=== PATIENT | male | born 2000 | race Caucasian/White ===

== ENCOUNTER 2025-01-06 14:46 | Emergency (ER) | payer BC, SELFPAY ==
[2025-01-06 14:58] VITALS: BP 159/74; PULSE 66; RESP 20; TEMP 37; O2SAT 98; BMI 30.1
--- NOTE | 2025-01-06 15:39 | ED.GENADULT ---
HPI - General Adult General Date Seen: 01/06/25 Chief complaint: Extremity Pain/Injury, Lower Stated complaint: sore knee-hard to walk Time Seen by Provider: 01/06/25 15:39 History of Present Illness HPI narrative: 24 yo M with a history of right knee ACL and meniscus repair, presenting to the ER today with progressively worsening right knee pain for the past couple of weeks. He says that he has had knee injuries from work and from football when he was younger. He has had 3 knee surgeries. All of his surgeries were done when he lived in [place]. He moved to [place] a couple of years ago but is not currently have any orthopedic team in [place]. He has no recent injury or fall or twisting. He has noted steadily worsening pain in his right knee for the past 2 weeks or so. Is now hurting the point where he is having trouble walking on it. It is not really swollen. It is not hot. He has not had any fever or chills. He has been taking ibuprofen sporadically, but not a lot over the past couple of days. He came to the ER today because he does not have an orthopedic doctor here in [place]. He wonders if we give him a cortisone shot in his knee. Related Data Home Medications ?Medication ?Instructions ?Recorded ?Confirmed No Known Home Medications 08/29/23 01/06/25 Allergies Allergy/AdvReac Type Severity Reaction Status Date / Time No Known Drug Allergies Allergy Verified 01/06/25 14:58 [facility] Surgical History History of arthroscopy of right knee ?Z98.890 - Other specified postprocedural states (ICD-10) Social History (Updated 02/10/24 @ 13:52 by Liz Conteh ~ [facility], [facility]) Narrative: some days vaping Smoking Status: Former smoker What tobacco products do you use: cigarettes Smoking quit date/years: <= 15 years ago Do you use any of these nicotine containing products: Vaping Products Second hand tobacco smoke exposure: No Exam Narrative: Exam Narrative: Constitutional: Appears well-developed and well-nourished. Active. Non-toxic appearing. Polite HENT: Head: Atraumatic. No signs of injury. Nose: No nasal discharge. Mouth/Throat: Mucous membranes are moist. Pharynx is normal. Tonsils symmetric. Uvula midline. Airway patent. Eyes: Conjunctivae normal and EOM are normal. Pupils are equal, round, and reactive to light. Right eye exhibits no discharge. Left eye exhibits no discharge. No icterus. Neck: Normal range of motion. Neck supple. No adenopathy. No stridor. Cardiovascular: Normal rate and regular rhythm. No murmur heard. No murmurs, rubs, or gallops. Brisk capillary refill Pulmonary/Chest: Effort normal. No stridor. No respiratory distress. . Breathing easily Musculoskeletal: Normal except for his right knee maurice of motion. Right lower extremity: Pelvis stable. Right hip nontender. Right femoral shaft, quadriceps, hamstrings nontender. Knee: Normal inspection. No redness. No swelling. He does have well-healed incisions on his anterior knee from his previous operations. No redness or warmth. No palpable effusion. Range of motion is from full extension to about 90? of flexion, limited by stiffness and pain. Intact extensor mechanism. Stress testing of the ACL, PCL, LCL is normal. Stress testing of the MCL reveals tenderness. No definite laxity but is limited by muscular guarding. No bony crepitus. Lower leg, ankle, and foot are normal. Neurological: Alert. Normal strength. No cranial nerve deficit or sensory deficit. Coordination normal. GCS eye subscore is 4. GCS verbal subscore is 5. GCS motor subscore is 6. Skin: Skin is warm. No rash noted. Const: Vital Signs, click to edit/add: Vital Signs - 24 hr 01/06/25 14:58 Temperature 98.6 F Pulse Rate [Pulse Oximeter] 66 Respiratory Rate 20 Blood Pressure [Ri ght Upper Arm] 159/74 H Pulse Oximetry 98 Oxygen Delivery Me thod Room Air Course Vital Signs Vital signs: Initial Vital Signs Temperature 98.6 F 01/06/25 14:58 Temperature Source Temporal Artery Scan 01/06/25 14:58 Pulse Rate 66 01/06/25 14:58 Respiratory Rate 20 01/06/25 14:58 Blood Pressure 159/74 H 01/06/25 14:58 Blood Pressure Mean 102 01/06/25 14:58 Pulse Oximetry 98 01/06/25 14:58 Oxygen Delivery Method Room Air 01/06/25 14:58 Vital Signs Temperature 98.6 F 01/06/25 14:58 Pulse Rate 66 01/06/25 14:58 Respiratory Rate 20 01/06/25 14:58 Blood Pressure 159/74 H 01/06/25 14:58 Pulse Oximetry 98 01/06/25 14:58 Oxygen Delivery Method Room Air 01/06/25 14:58 Temperature 98.6 F 01/06/25 14:58 Pulse Rate 66 01/06/25 14:58 Respiratory Rate 20 01/06/25 14:58 Blood Pressure 159/74 H 01/06/25 14:58 Pulse Oximetry 98 01/06/25 14:58 Oxygen Delivery Method Room Air 01/06/25 14:58 Medications Administered Medications: Discontinued Medications Generic Name Dose Route Start Last Admin Trade Name Angelito PRN Reason Stop Dose Admin Ibuprofen 600 mg 01/06/25 16:00 01/06/25 15:57 Ibuprofen 200 Mg Tablet PO 01/06/25 16:01 600 mg ONCE ONE Administration Medical Decision Making MDM Narrative Medical decision making narrative: Pleasant 24-year-old male with history of 3 previous right knee surgeries presenting to the ER with a 2 week history of progressively worsening atraumatic right knee pain. There is no swelling, effusion, redness, or warmth or fever to suggest a septic arthritis. He has no recent fall or injury. X-rays are obtained in the confirm no evidence for any occult fracture and not a lot of arthritic changes in the knee. On exam he does have significant tenderness with medial collateral stress. No definite ligamentous laxity. Patient was requesting a cortisone injection. Best to be performed in the orthopedic clinic rather than here in the ER. Will set the patient up with an orthopedic follow-up. Patient will call the orthopedic clinic on Wednesday to arrange an ER follow-up visit. For now use ibuprofen as needed for pain. Pt left prior to receiving his DC instructions. 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 Given a note for work so he can rest and keep his knee resting and elevated. Imaging Data XR right knee: Attestation: I have reviewed the pertinent imaging results. My impression: No acute fracture Radiologist's impression: IMPRESSION: 1. No acute osseous injuries or abnormalities are noted. Discharge Plan Discharge Clinical Impression: Acute pain of right knee Patient Disposition: Home, Self-Care Condition: Stable Instructions: Knee Pain (ED) Additional Instructions: As we discussed, your x-rays look good. Please call the [facility] on Wednesday to arrange an ER follow-up appointment. Call [phone]. In the meantime, rest and keep your knee elevated as possible. Use ibuprofen 600 mg up to 3 times daily as needed for pain. Use an ice pack for 20 minutes every few hours to help reduce pain and swelling. Please come back to the ER right away if you have any concerns especially worsening pain, new swelling, redness of your knee, or fever. Prescriptions: No Action No Known Home Medications Follow Up/Referrals: Provider,Not a Local [Primary Care Provider] - Stand Alone Forms: Work/School Release, [employer] Info Instructions
--- NOTE | 2025-01-06 15:52 | CRLHL7_ITS ---
For Patients: As a result of the Cures Act, medical imaging exams and procedure reports are released immediately into your electronic medical record. You may view this report before your referring provider. If you have questions, please contact your health care provider. INDICATION: Right knee pain TECHNIQUE: Knee radiograph 3 views right COMPARISON: None FINDINGS: Bone: No acute fractures or aggressive bone lesions are identified. Joint: The medial, lateral, and patellofemoral compartments are unremarkable. No significant knee effusion is seen. Soft tissue: Unremarkable. No radiopaque foreign bodies are seen. IMPRESSION: 1. No acute osseous injuries or abnormalities are noted. Dictated by: Michael Goldberg MD @ 01/06/2025 16:36:20 (Electronically Signed)
[2025-01-06] MEDS: IBUPROFEN 200 MG TABLET 600 MG PO (15:57)
--- OUTSIDE RECORDS SUMMARY | 2025-01-07 17:35 | XMS_ITS | Clinical Summary ---
Author Organization [facility] Address [address] [place] [id number] Care Team Providers Care Gas Flow Regulator Name Role Phone Michelle Sales MD Primary Care Provider [phone] Allergies No known active allergies Medications minocycline (MINOCIN) 100 mg capsuleIndications: Confluent and reticulated papillomatosis (CARP) Take 1 Capsule (100 mg) by mouth every 12 hours. 180 Capsule 3 Active Active Problems Problem Noted Date Diagnosed Date History of right knee medial mensicus repair DOS 06/02/[address] Ahuja 02/04/2023 History of right knee ACL re construction with BTB allograft, partial medial mensicectomy 25-30% by Pepe doe DOS 07/01/2016 02/04/2023 History of Right knee partia l medial meniscectomy DOS 01/08/2021 by Dejuan Munroe MD 02/04/2023 Immunizations Immunization Administration Dates Next Due MMR 01/20/2017 Tdap 01/20/2017 Tuberculin (PPD) 01/20/2017 Social History Tobacco Use Types Packs/Day Years Used Date Smoking Tobacco: Some Days Cigarettes Smokeless Tobacco: Never Tobacco Cessation:Ready to Q uit: No; Counseling Given: Yes Alcohol Use Standard Drinks/Week Comments Yes 0 (1 standard drink = 0.6 oz pur e alcohol) occ, socially PHQ-2 Answer Date Recorded PHQ-2 TOTAL SCORE 2 09/09/2022 Social Connections Answer Date Recorded Do you often feel lonely or isolated from those around you? 0 07/01/2023 Financial Resource Strain Answer Date R ecorded Difficulty of Paying Living Expenses 2 07/01/2023 Difficulty of Paying Living Expenses 1 07/01/2023 Food Insecurity Answer Date Recorded Do you worry your food will run out before you are able to buy more? 2 07/01/2023 Transportation Needs Answer Date Record ed Does lack of transportation keep you from medica l appointments? 1 07/01/2023 Does lack of transportation keep you from work, meetings or getting things that you need? 1 07/01/2023 Housing Stability Answer Date Recorded What is your housing situation today? 1 07/01/2023 Sex and Gender Information Value Date Recorded Sex Assigned at Not on file Legal Sex Male 12:36 PM [facility] Gender Identity Not on file Sexual Orientation Not on file Obstetrics History Last Filed Vital Signs Vital Sign Reading Time Taken Comments Blood Pressure 130/90 07/01/2023 11:59 AM [facility] Pulse 86 07/01/2023 11:59 AM [facility] Temperature 37.2 C (99 F) 07/01/2023 11:59 AM [facility] Respiratory Rate - - Oxygen Saturation 97% 07/01/2023 11:59 AM [facility] Inhaled Oxygen Concentration - - Weight 99.3 kg (219 lb) 07/01/2023 11:59 AM [facility] Height 176 cm (5' 9.29) 07/01/2023 11:59 AM [facility] Body Mass Index 32.07 07/01/2023 11:59 AM [facility] Plan of Treatment Health Maintenance Due Date Last Done Comments Depression screening for age 12+ 2011 HIV for age 15-65 2014 HPV series for age 9-26 (1 - Male 3-dose series) 2014 Hepatitis C screening for age 18-79 2017 Pneumococcal series for age 6-49 (1 of 2 - PCV) 2018 COVID-19 vaccine series ( - season) 2024 BMI (ht and wt on same day) for age 18+ 07/01/2024 1 08/31/2022, 09/09/2022 Influenza Vaccine (Season Ended) 2025 Tetanus booster 01/20/2027 01/20/2017 Tdap Completed 01/20/2017 Insurance BLUE CROSS OF NON-VT-ITS Care Teams Gas Flow Regulator Relationship Specialty Start Date End Date Michelle Sales MD [address] [place] [address] PCP - General Family Practice 09/09/22
== END 2025-01-06 17:52 | disposition home or self-care (01) ==
PROVIDERS: Emergency Provider Emergency Medicine
DX: M25.561 Pain in right knee (principal)
CPT/HCPCS: 73562; 99282; 99283; A9270

== ENCOUNTER 2025-01-17 13:32 | Outpatient (CLI) | payer BC, SELFPAY ==
--- NOTE | 2025-01-17 13:45 | MR_ITS ---
EXAM: MRI of the RIGHT KNEE, without contrast CLINICAL: Right knee injury with reported history of ACL reconstruction, meniscal repair and OATS procedure. Evaluate ACL graft and medial compartment. COMPARISONS: MRI 12/25/2022. X-rays 01/06/2025. TECHNICAL: Multiplanar multisequence MRI of the right knee was obtained. SEDATION: None. CONTRAST: None. FINDINGS: Ligaments: ACL: Postoperative changes of prior ACL reconstruction surgery without evidence of graft disruption. There is apparent arthrofibrosis within the anterior intercondylar notch anterior to the ACL graft which appears mildly increased compared to prior exam. Cystic changes involving the tibial tunnel appear similar to prior exam. PCL: Intact and unremarkable. MCL: Intact and unremarkable. LCL: Intact and unremarkable. Posterolateral corner: Popliteus, biceps femoris, iliotibial band, and the popliteofibular ligament appear intact. Posteromedial corner: Semimembranosus, pes anserine tendons and posterior oblique ligament appear intact. Extensor mechanism: Patellar tendon: There is mild tendinosis of the proximal patellar tendon. No patellar tendon tear. Quadriceps tendon: Intact, without tendinopathy. Retinacula: Medial and lateral retinacula are intact. Patellofemoral joint: Patella: No significant chondromalacia. Trochlea: Postoperative changes of the medial trochlea appear similar to prior examination. No new chondral defects. Medial compartment: Medial meniscus: Tearing of the medial meniscus appears similar to prior examination. No new meniscal displacement. Medial cartilage: Postoperative changes of reported history of prior OATS procedure involving the weightbearing medial femoral condyle with associated overlying chondral loss appears similar to prior examination. No new chondral defects. Lateral compartment: Lateral meniscus: Tearing of the anterior horn and anterior root appears similar to prior examination. Remainder of the meniscus appears intact. Lateral cartilage: Chondral thinning involving the anterior lateral tibial plateau appears similar to prior examination. No new chondral defects. Knee joint: Effusion: Physiologic right knee effusion. Intra-articular bodies:?No convincing bodies identified. Popliteal cyst: Small. Bones: Postoperative changes of prior ACL reconstruction surgery with associated tibial and femoral tunnels. Postoperative changes involving the medial trochlea and weightbearing medial femoral condyle appear similar to prior examination. No new fracture identified. IMPRESSION: 1. Postoperative changes of prior ACL reconstruction surgery without evidence of graft disruption. 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 Cystic change involving the tibial tunnel as similar to prior exam. 2. Postoperative changes of reported history of prior OATS procedure involving the medial trochlea and weightbearing medial femoral condyle similar to prior examination. 3. Tearing of the medial and lateral menisci similar to prior exam. 4. Mild tendinosis of the proximal patellar tendon. 5. Small popliteal cyst. JCZ Electronically signed on 01/18/2025 8:57:00 AM by Tra Archuleta D.O.
== END 2025-01-17 13:33 | disposition home or self-care (01) ==
LOC: MRI 13:38
PROVIDERS: Visit Provider Physician Assistant
DX: M25.561 Pain in right knee (principal); M24.661 Ankylosis, right knee; S83.281A Other tear of lateral meniscus, current injury, right knee, initial encounter; S83.241A Other tear of medial meniscus, current injury, right knee, initial encounter; M71.21 Synovial cyst of popliteal space [Baker], right knee
CPT/HCPCS: 73721